=== PATIENT | male | born 1970 | race African-American/Black ===

== ENCOUNTER 2023-11-03 15:59 | Emergency (ER) | payer BC ==
--- NOTE | 2023-11-03 17:27 | RAD REPORT ---
EXAM DESCRIPTION: CT - Stone Protocol - 11/03/2023 4:56 pm CLINICAL HISTORY: back pain, hematuria COMPARISON: No comparisons TECHNIQUE: Thin cut axial CT imaging of the abdomen and pelvis was performed without IV contrast. Mu ltiplanar reformats were generated and reviewed. All CT scans are performed using dose optimization technique as appropriate and may include automated exposure control or mA/KV adjustment according to patient size. FINDINGS: No suspicious findings in the lung bases. The liver shows small scattered hypoattenuating lesions, largest in the subcapsular left lobe measuri ng 1 cm. These are not well characterized given size, but may represent small cysts. Spleen, adrenal glands, and pancreas show no suspicious findings. Gallbladder and biliary tree are also without suspi cious finding. Symmetric renal contour, without suspicious parenchymal findings within limits of noncontrast techniq ue. Multiple parapelvic right renal cysts present. No evidence of radiopaque calculi or hydroureteron ephrosis. No dilated bowel loops or bowel wall thickening. No free air, free fluid or inflammatory stranding. N o hernia, mass or bulky lymphadenopathy. The urinary bladder is decompressed, limiting evaluation. No suspicious bony findings. Small sclerotic lesion measuring 12 mm within the S2 vertebral body on t he left probably representing small bone island. IMPRESSION: No acute intra-abdominal process. Incidental findings as above.
[2023-11-03 18:26] LABS: Specific Gravity 1.024 (1.005-1.030); Sqamous Epithelial <5 /HPF (None Seen); Urine Bacteria None Seen /HPF (<20); Urine Bilirubin NEGATIVE (Negative); Urine Blood Negative (Negative); Urine Clarity Turbid (Clear); Urine Color Yellow (Yellow); Urine Culture Reflex Order NOT NEEDED; Urine Glucose NEGATIVE (Negative); Urine Ketones NEGATIVE (Negative); Urine Microscopic Reflex YN ORDER UMIC; Urine Mucus 1+ /HPF (None Seen); Urine Nitrite NEGATIVE (Negative); Urine Protein TRACE (Negative); Urine RBC None Seen /HPF (None Seen); Urine Urobilinogen Normal (Normal); Urine WBC <5 /HPF (<5); Urine pH 7.5 (5.0-7.0)
[2023-11-03 18:57] LABS: Absolute Eosinophils 0.3 K/uL (0-0.5); Absolute Lymphocytes (CBC) 1.6 K/uL (0.7-4.9); Absolute Monocytes 0.6 K/uL (0.1-1.3); Absolute Neutrophil 3.9 K/uL (1.8-8.0); Basophils % 0.8 % (0-1.3); Hematocrit 43.3 % (39.6-49.0); Hemoglobin 13.9 g/dL (13.6-17.9); Lymphocytes % 24.6 % (15.3-44.8); MCH 26.5 pg (27.0-35.0); MCHC 32.2 g/dL (32.0-36.0); MCV 82.2 fL (80-100); MPV 8.4 fL (7.6-11.3); Neutrophils % 60.6 % (41.7-73.7); Nucleated Red Blood Cells % 0.3 % (0-0); Platelets 167 thou/uL (152-406); RBC Red Blood Cell Count 5.26 M/uL (4.33-5.43); Red Cell Distribution Width 15.7 % (12.1-15.2)
[2023-11-03 19:09] LABS: Anion Gap 6.7 mEq/L (5.0-15.0); Potassium 3.7 mEq/L (3.5-5.1)
--- NOTE | 2023-11-03 19:21 | ER ---
Nurse's Notes [facility] Name: Kevin Engel Age: 53 yrs Sex: Male : 1970 Arrival Date: 11/03/2023 Time: 15:59 Bed 12 Private MD: Diagnosis: Low back pain;Tinea corporis Presentation: 11/02 16:15 Chief complaint: Patient states: Pt c/o right side low back pain x 2-3 weeks, right hip tl4 pain x 'over a year', intermittent hematuria, and a rash that is getting worse x 1 month. Coronavirus screen: At this time, the client does not indicate any symptoms associated with coronavirus-19. Ebola Screen: No symptoms or risks identified at this time. Initial Sepsis Screen: Does the patient meet any 2 criteria? No. Patient's initial sepsis screen is negative. Does the patient have a suspected source of infection? No. Patient's initial sepsis screen is negative. Risk Assessment: Do you want to hurt yourself or someone else? Patient reports no desire to harm self or others. Onset of symptoms is unknown. 16:15 Method Of Arrival: Ambulatory tl4 16:15 Acuity: BONITA 3 tl4 Triage Assessment: 16:21 General: Appears in no apparent distress. Behavior is calm, cooperative. Pain: tl4 Complains of pain in back and right hip. EENT: No signs and/or symptoms were reported regarding the EENT system. Neuro: Level of Consciousness is awake, alert, obeys commands, Oriented to person, place, time, situation, Moves all extremities. Full function Gait is steady, Speech is normal. Cardiovascular: Capillary refill < 3 seconds Patient's skin is warm and dry. Respiratory: Airway is patent Respiratory effort is even, unlabored, Respiratory pattern is regular, symmetrical. GI: No signs and/or symptoms were reported involving the gastrointestinal system. : Reports intermittent hematuria. Derm: No signs and/or symptoms reported regarding the dermatologic system. Musculoskeletal: Reports pain in right hip and right lower back. Historical: - Allergies: 16:19 No Known Allergies; tl4 - Home Meds: 16:19 None [Active]; tl4 - PMHx: 16:19 None; tl4 - PSHx: 16:19 dental; cyst removal right thigh; tl4 - Immunization history:: Adult Immunizations unknown. - Infectious Disease History:: Denies. - Social history:: Smoking status: Patient denies any tobacco usage or history of. - Family history:: not pertinent. - Hospitalizations: : No recent hospitalization is reported. Screenin:50 [facility] ED Fall Risk Assessment (Adult) History of falling in the last 3 months, le1 including since admission No falls in past 3 months (0 pts) Confusion or Disorientation No (0 pts) Intoxicated or Sedated No (0 pts) Impaired Gait No (0 pts) Mobility Assist Device Used No (0 pt) Altered Elimination No (0 pt) Score/Fall Risk Level 0 - 2 = Low Risk Oriented to surroundings, Maintained a safe environment, Educated pt \T\ family on fall prevention, incl call for assistance when getting out of bed, Assessed \T\ reinforced patient's understanding of fall precautions, Hourly rounding (assess needs \T\ fall precautionary measures) done. Abuse screen: Denies threats or abuse. Denies injuries from another. Nutritional screening: No deficits noted. Tuberculosis screening: No symptoms or risk factors identified. Assessment: 18:49 General: Appears in no apparent distress. comfortable, Behavior is calm, cooperative. le1 Pain: Complains of pain in back, anterior aspect of right lateral abdomen and posterior aspect of right lateral abdomen. Neuro: No deficits noted. Cardiovascular: No deficits noted. Respiratory: No deficits noted. GI: No deficits noted. : No deficits noted. Vital Signs: 16:15 BP 129 / 79; Pulse 61; Resp 16; Temp 97.9(TE); Pulse Ox 98% ; Weight 92.99 kg; Height 5 tl4 ft. 8 in. ; Pain 5/10; 18:51 BP 127 / 88; Pulse 54; Resp 16; Pulse Ox 95% on R/A; Pain 5/10; le1 20:24 BP 123 / 84; Pulse 61; Resp 16; Temp 98.5; Pulse Ox 96% on R/A; Pain 0/10; le1 16:15 Body Mass Index 31.17 (92.99 kg, 172.72 cm) tl4 16:15 Pain Scale: Adult tl4 18:51 Pain Scale: Adult le1 20:24 Pain Scale: Adult le1 ED Course: 16:00 Patient arrived in ED. im 16:07 Raymond Roque MD is Attending Physician. rn 16:19 Triage completed. tl4 16:23 Arm band placed on right wrist. tl4 16:58 CT Stone Protocol In Process Unspecified. EDMS 17:35 Urine collected: clean catch specimen. tl4 17:35 Urinalysis w/ reflexes Sent. tl4 18:12 Jhoana Mcclure, RN is Primary Nurse. le1 18:50 Patient has correct armband on for positive identification. Placed in gown. Bed in low le1 position. Call light in reach. Side rails up X 1. Provided Education on: use call light for assistance . 18:51 Inserted saline lock: 16 gauge in right antecubital area, using aseptic technique. le1 Blood collected. Flushed with 10 mL NS. 20:25 IV discontinued, intact, bleeding controlled, No redness/swelling at site. Pressure le1 dressing applied. 20:25 No provider procedures requiring assistance completed. le1 Administered Medications: 20:16 Drug: Rocephin (cefTRIAXone) IM 250 mg IM once Route: IM; Site: left ventrogluteal; le1 20:17 Follow up: Response: No adverse reaction le1 20:16 Drug: AZITHromycin PO 1 grams PO once Route: PO; le1 20:17 Follow up: Response: No adverse reaction le1 20:16 Drug: metroNIDAZOLE PO 2 grams PO once Route: PO; le1 20:16 Follow up: Response: No adverse reaction le1 Medication: 18:51 VIS not applicable for this client. le1 Outcome: 19:20 Discharge ordered by . rn 20:25 Discharged to home ambulatory, le1 20:25 Condition: improved 20:25 Discharge instructions given to patient, Instructed on discharge instructions, follow up and referral plans. medication usage, Demonstrated understanding of instructions, follow-up care, medications, Prescriptions given X 2, 20:25 Patient left the ED. le1 Signatures: Dispatcher [employer] EDMS Raymond Roque MD MD rn Mendoza, Itzel im Logdahl, Toni, RN RN tl4 Jhoana Mcclure, SUSAN RN le1 Corrections: (The following items were deleted from the chart) 18:53 18:51 Inserted saline lock: 16 gauge in right antecubital area, using aseptic le1 technique. Blood collected. le1
--- NOTE | 2023-11-03 19:21 | EDPHYS ---
Physician Documentation [facility] Name: Kevin Engel Age: 53 yrs Sex: Male : 1970 Arrival Date: 11/03/2023 Time: 15:59 Bed 12 Private MD: ED Physician Raymond Roque HPI: 11/02 16:42 This 53 yrs old Male presents to ER via Ambulatory with complaints of Low Back Pain, rn Hip Pain, Rash. 16:42 The patient presents with pain that is chronic. The symptoms are located in the low rn back. The pain radiates to the right hip. 17:04 Onset: The symptoms/episode began/occurred at an unknown time. Associated signs and rn symptoms: Pertinent negatives: abdominal pain, chest pain, fever. Severity of symptoms: At their worst the symptoms were mild, in the emergency department the symptoms are unchanged. The patient has experienced similar episodes in the past. Pt reports here for multiple problems. + right lower back pain, radiates to hip region, "feels deep", has been intermittent for over a year. Also here for skin rash to the right flank. Also reports intermittent blood in urine for months. Denies penile discharge.. Historical: - Allergies: 16:19 No Known Allergies; tl4 - Home Meds: 16:19 None [Active]; tl4 - PMHx: 16:19 None; tl4 - PSHx: 16:19 dental; cyst removal right thigh; tl4 - Immunization history:: Adult Immunizations unknown. - Infectious Disease History:: Denies. - Social history:: Smoking status: Patient denies any tobacco usage or history of. - Family history:: not pertinent. - Hospitalizations: : No recent hospitalization is reported. ROS: 17:04 Constitutional: Negative for fever, chills, and weight loss, Eyes: Negative for injury, rn pain, redness, and discharge, Neck: Negative for injury, pain, and swelling, Cardiovascular: Negative for chest pain, palpitations, and edema, Respiratory: Negative for shortness of breath, cough, wheezing, and pleuritic chest pain, Abdomen/GI: Negative for abdominal pain, nausea, vomiting, diarrhea, and constipation, Back: Positive for right lower back pain : Positive for intermittent hematuria MS/Extremity: Negative for injury and deformity, Neuro: Negative for headache, weakness, numbness, tingling, and seizure, Exam: 17:04 Constitutional: Ambulatory to triage without assistance Cardiovascular: Regular rate rn and rhythm. No pulse deficits. Respiratory: No increased work of breathing, no retractions or nasal flaring. Abdomen/GI: Soft, non-tender Back: No spinal tenderness. No costovertebral tenderness. Skin: Right flank with moderate sized scaly plaque with raised borders. No bulla. No desquamation. No vesicles. MS/ Extremity: Pulses equal, no cyanosis. Neurovascular intact. Full, normal range of motion. Equal circumference. Neuro: Awake and alert, GCS 15, oriented to person, place, time, and situation. Cranial nerves II-XII grossly intact. Motor strength 5/5 in all extremities. Sensory grossly intact. Cerebellar exam normal. Normal gait. Vital Signs: 16:15 BP 129 / 79; Pulse 61; Resp 16; Temp 97.9(TE); Pulse Ox 98% ; Weight 92.99 kg; Height 5 tl4 ft. 8 in. ; Pain 5/10; 18:51 BP 127 / 88; Pulse 54; Resp 16; Pulse Ox 95% on R/A; Pain 5/10; le1 20:24 BP 123 / 84; Pulse 61; Resp 16; Temp 98.5; Pulse Ox 96% on R/A; Pain 0/10; le1 16:15 Body Mass Index 31.17 (92.99 kg, 172.72 cm) tl4 16:15 Pain Scale: Adult tl4 18:51 Pain Scale: Adult le1 20:24 Pain Scale: Adult le1 MDM: 16:07 Patient medically screened. rn 19:19 Differential diagnosis: arthritis, strain, sciatica, Herniated disc UTI. Data reviewed: rn vital signs, nurses notes, lab test result(s), radiologic studies, CT scan, and as a result, I will discharge patient. Counseling: I had a detailed discussion with the patient and/or guardian regarding the historical points, exam findings, and any diagnostic results supporting the discharge/admit diagnosis, lab results, radiology results, the need for outpatient follow up, to return to the emergency department if symptoms worsen or persist or if there are any questions or concerns that arise at home. Special discussion: I discussed with the patient/guardian in detail that at this point there is no indication for admission to the hospital. It is understood, however, that if the symptoms persist or worsen the patient needs to return immediately for re-evaluation. ED course: Patient now reports there is concern for STI. No penile drainage but given intermittent hematuria that he reports will treat as such. No hematuria and UA today. No acute findings and CT. Did discuss liver and renal cysts with patient and need to follow-up.. 11/02 16:27 Order name: CBC with Diff; Complete Time: 19:11 rn 11/02 16:27 Order name: Basic Metabolic Panel; Complete Time: 19:11 rn 11/02 16:27 Order name: Urinalysis w/ reflexes; Complete Time: 18:42 rn 11/02 16:27 Order name: CT Stone Protocol; Complete Time: 17:48 rn 11/02 16: Order name: IV Start; Complete Time: 19:01 rn Administered Medications: 20:16 Drug: Rocephin (cefTRIAXone) IM 250 mg IM once Route: IM; Site: left ventrogluteal; le1 20:17 Follow up: Response: No adverse reaction le1 20:16 Drug: AZITHromycin PO 1 grams PO once Route: PO; le1 20:17 Follow up: Response: No adverse reaction le1 20:16 Drug: metroNIDAZOLE PO 2 grams PO once Route: PO; le1 20:16 Follow up: Response: No adverse reaction le1 Disposition Summary: 11/03/23 19:20 Discharge Ordered Notes: Location: Home rn Problem: new rn Symptoms: have improved rn Condition: Stable rn Diagnosis - Low back pain rn - Tinea corporis rn Followup: rn - With: Private Physician - When: As needed - Reason: Recheck today's complaints, Re-evaluation by your physician Discharge Instructions: - Discharge Summary Sheet rn - Chronic Back Pain rn - Pain Without a Known Cause rn - Body Ringworm rn Forms: - Medication Reconciliation Form rn - 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
[2023-11-03] MEDS ORDERED: metroNIDAZOLE 500 MG TABLET ONE (20:00)
[2023-11-03] MEDS ORDERED: AZITHROMYCIN 250 MG TAB ONE (20:00)
[2023-11-03] MEDS ORDERED: CEFTRIAXONE 250 MG/VIAL ONE (20:01)
[2023-11-03] MEDS ORDERED: WATER FOR INJ,STERILE 10 ML ONE (20:04)
[2023-11-03 20:47] VITALS: BP 123/84; TEMP 98.5; O2SAT 96
== END 2023-11-03 20:25 | disposition home or self-care (01) ==
LOC: ER 15:59
DX: M54.50 Low back pain, unspecified (principal); B35.4 Tinea corporis
CPT/HCPCS: 85025; 81001; 80048; 36415; 76377; 74176; 96372; 99284; J0696